=== PATIENT | female | born 1955 | race Two or more races ===

== ENCOUNTER 2024-01-08 22:05 | Emergency (ER) | payer OTHER, SELFPAY ==
[2024-01-08 22:17] VITALS: BP 171/71; PULSE 72; TEMP 36.6; O2SAT 97; BMI 31.2
[2024-01-08 22:19] VITALS: BP 171/71; O2SAT 98
--- NOTE | 2024-01-08 22:23 | XR_ITS ---
The [address] [address] Patient Name: GLENROY BERGER MRN: [id number] date: 1955 Sex: F Assigned Patient Location: ER Current Patient Location: ED.MAIN Accession/Order Number: [id number] Exam Date: 01/08/2024 22:32 Report Date: 01/08/2024 23:42 At the request of: PILY CARLOS Procedure: XR chest 1V CXR HISTORY: chest pain. COMPARISON: None. TECHNIQUE: 1 view of the chest submitted for review. FINDINGS: Lines and tubes: None Lungs are hyperaerated. No acute infiltrate. No effusion. The cardiac silhouette measures within normal. Pulmonary vascularity is unremarkable. Osseous structures are normal for age. XR/XR chest 1V IMPRESSION: No plain film evidence for acute cardiopulmonary disease. Electronically authenticated by: MILO ROSE Date: 01/08/2024 23:42
--- NOTE | 2024-01-08 22:23 | ECG_ITS ---
The [facility] Test Date: 2024-01-08 Pat Name: GLENROY BERGER Department: Room: - Gender: Female Professor [employer]: : 1955 Requested By: [id number] Order Number: [id number] Reading MD: ANOOP SANCHEZ Measurements Intervals [place] Rate: 71 P: 75 IN: 164 QRS: 76 QRSD: 82 T: 65 QT: 374 QTc: 396 Interpretive Statements 1100 Sinus rhythm 9110 normal ECG No previous ECG available for comparison Electronically Signed On 01-09-2024 6:49:51 EDT by ANOOP SANCHEZ
--- NOTE | 2024-01-08 22:24 | ED_ITS ---
HPI - Chest Pain General Chief Complaint: Chest Pain Stated Complaint: CHEST PAIN Time Seen by Provider: 01/08/24 22:20 Source: patient Mode of arrival: walk-in Limitations: no limitations History of Present Illness HPI narrative: presents complaining of right sided chest pain. describes lifting plants all week. pain of her right shoulder and right chest. Believes she pulled a muscle. Not short of breath. No nausea or dyspnea MD complaint: Reports chest pain Related Data Allergies Allergy/AdvReac Type Severity Reaction Status Date / Time No Known Drug Allergies Allergy Verified 01/08/24 22:17 Review of Systems ROS Status of ROS 10 or more systems reviewed and unremark able except as noted in history and below Exam Constitutional Vital Signs, click to edit/add: Last Vital Signs Temp 97.9 F 01/08/24 22:17 Pulse 78 01/08/24 23:00 Resp 29 H 01/08/24 23:00 BP 135/71 01/08/24 23:00 Pulse Ox 97 01/08/24 23:00 O2 Del Method Room Air 01/08/24 22:17 Common normals: no apparent distress, oriented x3, no limitations, healthy appearing, alert and well nourished Eye Common normals: EOMs intact bilaterally and conjunctivae normal Chest Other: right chest wall tenderness that reproduces symptoms Respiratory Common normals: normal respiratory effort, no retractions, no use of accessory muscles and clear to auscultation bilaterally Cardio Common normals: regular rate, regular rhythm, S1 normal heart sound and S2 normal heart sound GI Common normals: Normal to inspection, nondistended, normoactive bowel sounds present and soft to palpation Extremity Common normals: normal to inspection and full ROM Neuro Common normals: oriented x3, CN's II-XII intact bilaterally, moves all extremities and no focal motor deficits Psych Appearance: grossly normal Course Vital Signs Vital signs: Vital Signs Temperature 97.9 F 01/08/24 22:17 Pulse Rate 72 01/08/24 22:17 Respiratory Rate 20 01/08/24 22:17 Blood Pressure 171/71 H 01/08/24 22:17 Pulse Oximetry 97 01/08/24 22:17 Oxygen Delivery Method Room Air 01/08/24 22:17 Temperature 97.9 F 01/08/24 22:17 Pulse Rate 78 01/08/24 23:00 Respiratory Rate 29 H 01/08/24 23:00 Blood Pressure 135/71 01/08/24 23:00 Pulse Oximetry 97 01/08/24 23:00 Oxygen Delivery Method Room Air 01/08/24 22:17 MDM - Chest Pain MDM Narrative Medical decision making narrative: patient presents with right shoulder and chest wall musculoskeletal pain after recurrent lifting this past week. Right chest wall is tender and reproduces symptoms. labs including d-dimer, troponin neg. EKG normal. cxray clear. patie nt advised of the diagnosis and discharged home with a prescription for prednisone and Norflex Lab Data Labs: Lab Results 01/08/24 Range/Units 22:30 WBC 11.3 H (4.0-11.0) 10^3/uL RBC 4.16 L (4.20-5.40) 10^6/uL Hgb 12.5 (12.0-16.0) g/dL Hct 37.4 (36.0-48.0) % MCV 89.9 (81.0-99.0) fL MCH 30.0 (26.7-34.0) pg MCHC 33.4 (29.9-35.2) g/dL RDW 13.0 (11.0-15.0) % Plt Count 228 (150-450) 10^3/uL MPV 10.4 (9.5-13.5) fL Neut % (Auto) 61.3 (43.0-75.0) % Lymph % (Auto) 30.4 (20.5-60.0) % Graham % (Auto) 6.2 (1.7-12.0) % Eos % (Auto) 1.4 (0.9-7.0) % Baso % (Auto) 0.3 (0.2-2.0) % Neut # (Auto) 6.9 H (1.4-6.5) 10^3/uL Lymph # (Auto) 3.4 (1.2-3.8) 10^3/uL Graham # (Auto) 0.7 (0.3-0.8) 10^3/uL Eos # (Auto) 0.2 (0.0-0.7) 10^3/uL Baso # (Auto) 0.0 (0.0-0.1) 10^3/uL Abs Immat Gran (auto) 0.05 H (0.00-0.03) 10^3/uL Imm/Tot Granulo (auto) 0.4 (0.0-0.5) % D-Dimer 0.45 (<=0.59) mg/L FEU Sodium 141 (136-145) mmol/L Potassium 3.8 (3.5-5.1) mmol/L Chloride 106 (98-107) mmol/L Carbon Dioxide 27.9 (21.0-32.0) mmol/L Anion Gap 10.9 BUN 18.0 (7.0-18.0) mg/dL Creatinine 0.82 (0.55-1.02) mg/dL Est GFR ( Amer) >60 (>=60) Est GFR (Non-Af Amer) >60 (>=60) BUN/Creatinine Ratio 22.0 Glucose 119 H (74-106) mg/dL Calcium 9.0 (8.5-10.1) mg/dL Troponin I High Sens 24.6 (4.0-51.3) pg/mL Discharge Plan Discharge Stand Alone Forms: Portal Instructions Chief Complaint: Chest Pain Clinical Impression: Anterior chest wall pain, Muscle strain of anterior chest wall Patient Disposition: Home, Self-Care Print Language: Tuvaluan Instructions: Muscle Strain (ED), Chest Wall Pain (ED) Referrals: STORMY ANNA APRN, CNM [Primary Care Provider] - 1 week
[2024-01-08 22:29] VITALS: BP 151/95; PULSE 76; O2SAT 98
[2024-01-08 22:30] VITALS: BP 148/80; PULSE 70; O2SAT 98
[2024-01-08 22:41] LABS: Basophils Percent Auto 0.3 % (0.2-2.0); Eosinophils Absolute Auto 0.2 10^3/uL (0.0-0.7); Eosinophils Percent Auto 1.4 % (0.9-7.0); Hematocrit 37.4 % (36.0-48.0); Hemoglobin 12.5 g/dL (12.0-16.0); Immature Granulocytes Abs Auto 0.05 10^3/uL (0.00-0.03); Immature Granulocytes Pct Auto 0.4 % (0.0-0.5); Lymphocytes Absolute Auto 3.4 10^3/uL (1.2-3.8); Lymphocytes Percent Auto 30.4 % (20.5-60.0); Mean Corpuscular HGB Conc 33.4 g/dL (29.9-35.2); Mean Corpuscular Volume 89.9 fL (81.0-99.0); Mean Platelet Volume 10.4 fL (9.5-13.5); Monocytes Absolute Auto 0.7 10^3/uL (0.3-0.8); Monocytes Percent Auto 6.2 % (1.7-12.0); Neutrophils Absolute Auto 6.9 10^3/uL (1.4-6.5); Neutrophils Percent Auto 61.3 % (43.0-75.0); Platelet Count 228 10^3/uL (150-450); Red Blood Count 4.16 10^6/uL (4.20-5.40); White Blood Count 11.3 10^3/uL (4.0-11.0)
[2024-01-08 22:58] LABS: D Dimer 0.45 mg/L FEU (<=0.59)
[2024-01-08 23:00] VITALS: BP 135/71; PULSE 78; O2SAT 97
[2024-01-08 23:02] LABS: Anion Gap 10.9; Carbon Dioxide 27.9 mmol/L (21.0-32.0); Chloride 106 mmol/L (98-107); Estimated GFR (African America >60 (>=60); Estimated GFR (Non-African Ame >60 (>=60); Glucose 119 mg/dL (74-106); Potassium 3.8 mmol/L (3.5-5.1); Sodium 141 mmol/L (136-145); Troponin I High Sensitivity 24.6 pg/mL (4.0-51.3)
[2024-01-08] MEDS: METHYLPREDNISOLONE SOD SUCC PF 125 MG/2 ML VIAL IVP (23:41)
[2024-01-08] MEDS: ORPHENADRINE 60 MG/ 2 ML VIAL IV (23:41)
== END 2024-01-09 00:01 | disposition home or self-care (01) ==
PROVIDERS: Emergency Provider Internal Medicine; PCP Midwife
DX: S29.011A Strain of muscle and tendon of front wall of thorax, initial encounter (principal); R07.89 Other chest pain; X50.9XXA Other and unspecified overexertion or strenuous movements or postures, initial encounter
CPT/HCPCS: 36415; 71045; 80048; 84484; 85025; 85378; 93005; 96374; 96375; 99285; J2919